=== PATIENT | male | born 1995 | race Hispanic/Latino ===

== ENCOUNTER 2017-06-26 07:02 | Emergency (ER) | payer OTHER ==
[2017-06-26 07:15] VITALS: O2SAT 98
--- NOTE | 2017-06-26 08:08 | ED PDOC ---
HPI: General Adult Time Seen by Provider: 06/26/17 07:21 Chief Complaint (Nursing): Fever Chief Complaint (Provider): Right Tonsil Pain History Per: Patient History/Exam Limitations: no limitations Onset/Duration Of Symptoms: Hrs (4am) Current Symptoms Are (Timing): Intermittent Episodes Additional Complaint(s): 21 year old male with a history of anxiety disorder presents to the ED complaining of intermittent bleeding in the right tonsil onset 4am. States he felt swelling and woke up due to the discomfort. Also reports he had fever two days ago but there was no tonsil infection. Denies vomiting or coughing. PMD: Makayla Das MD Past Medical History Reviewed: Historical Data, Nursing Documentation, Vital Signs Vital Signs: Last Vital Signs Temp Pulse Resp BP Pulse Ox 98 06/26/17 08:28 - Medical History PMH: Anxiety - Surgical History Surgical History: No Surg Hx - Family History Family History: States: Unknown Family Hx - Social History Current smoker - smoking cessation education provided: No Alcohol: Social Drugs: Denies - Allergies Allergies/Adverse Reactions: Allergies Allergy/AdvReac Type Severity Reaction Status Date / Time No Known Allergies Allergy Verified 06/26/17 07:12 Review of Systems ROS Statement: Except As Marked, All Systems Reviewed And Found Negative Constitutional: Negative for: Fever ENT: Positive for: Throat Pain (bleeding in right tonsil ) Respiratory: Negative for: Cough Gastrointestinal: Negative for: Vomiting Physical Exam - Reviewed Nursing Documentation Reviewed: Yes Vital Signs Reviewed: Yes - Physical Exam Appears: Positive for: Well, Non-toxic, No Acute Distress Head Exam: Positive for: ATRAUMATIC, NORMAL INSPECTION, NORMOCEPHALIC Skin: Positive for: Normal Color, Warm, Dry ENT: Positive for: Tonsillar Swelling (erythematous), Other (hypertrophy 2+ tonsil, cryptic ). Negative for: Tonsillar Exudate Neck: Positive for: Normal, Painless ROM, Supple. Negative for: Decreased ROM Neurologic/Psych: Positive for: Alert, Oriented (x3). Negative for: Motor/ Sensory Deficits - ECG O2 Sat by Pulse Oximetry: 98 (RA) Pulse Ox Interpretation: Normal Medical Decision Making Medical Decision Making: Time: 721 Initial Plan: --Rapid Strep Group A Antigen --Reevaluation Strep test results are negative Scribe Attestation: Documented by Saul Pa, acting as a scribe for Carley Omalley MD Provider Scribe Attestation: All medical record entries made by the Scribe were at my direction and personally dictated by me. I have reviewed the chart and agree that the record accurately reflects my personal performance of the history, physical exam, medical decision making, and the department course for this patient. I have also personally directed, reviewed, and agree with the discharge instructions and disposition. Additionally, patient admits to trying to examine his own tonsils last night using a cotton-tipped swab. This is possibly the cause of bleeding that he noticed early this morning. There is no active bleeding a present. He and his partner quantifies the bleeding as possible 2-3 tablespoons. Disposition - Clinical Impression Clinical Impression: Sore throat, Tonsillar bleed - Patient ED Disposition Is Patient to be Admitted: No Doctor Will See Patient In The: Office Counseled Patient/Family Regarding: Diagnosis - Disposition Referrals: Hector David MD [Medical Doctor] - 06/26/17 11:30 am Disposition: Routine/Home Disposition Time: 08:41 Condition: STABLE Instructions: Sore Throat in Adults Forms: [employer] ([place]), [facility] ED School/Work Excuse - POA Present On Arrival: None
== END 2017-06-26 08:57 | disposition home or self-care (01) ==
LOC: H.ER 07:02
DX: J02.9 Acute pharyngitis, unspecified (principal); J95.830 Postprocedural hemorrhage of a respiratory system organ or structure following a respiratory system procedure; F41.9 Anxiety disorder, unspecified